=== PATIENT | female | born 2000 | race Caucasian/White ===

== ENCOUNTER 2023-11-09 22:07 | Outpatient (REF) | payer OTHER, SELFPAY ==
[2023-11-12 22:07] LABS: Age Gdln ACOG Testing Note (.); IGP, rfx Aptima HPV ASCU Note (.)
== END 2023-11-09 22:08 | disposition home or self-care (01) ==
LOC: LAB 22:07
PROVIDERS: Visit Provider Physician Assistant
DX: Z01.419 Encounter for gynecological examination (general) (routine) without abnormal findings (principal)
CPT/HCPCS: G0145

== ENCOUNTER 2023-11-10 15:08 | Outpatient (OUT) | payer OTHER, SELFPAY ==
--- NOTE | 2023-11-10 15:12 | US_ITS ---
The [address] [address] Patient Name: MARY JO MEEKS MRN: [id number] date: 2000 Sex: F Assigned Patient Location: [facility] Current Patient Location: [facility] Accession/Order Number: [id number] Exam Date: 11/10/2023 15:12 Report Date: 11/10/2023 15:54 At the request of: SANDOR DEL VALLE Procedure: US pelvis transvaginal EXAMINATION: US pelvis transvaginal HISTORY: PELVIC PAIN WITH INTERCOURSE COMPARISON: No relevant comparison available. FINDINGS: The uterus is normal in size, contour and echotexture, anteverted, retroflexed. The uterus measures 8.5 x 3.9 x 6.2 cm. No focal myometrial mass The endometrium measures 9 mm, normal. The right ovary is normal measuring 4.4 x 2.2 x 3.6 cm. Area of anechoic echogenicity measuring 2.7 cm, simple cyst. Multiple peripheral subcentimeter follicles Normal color Doppler flow. Left ovary is normal measuring 3.5 x 2.1 x 2.9 cm. Additional subcentimeter follicles Normal color Doppler flow. Small amount of free pelvic fluid, likely physiologic US/US pelvis transvaginal IMPRESSION: 2.7 cm right ovarian simple cyst Electronically authenticated by: DAVID KIM Date: 11/10/2023 15:54
== END 2023-11-10 15:09 | disposition home or self-care (01) ==
LOC: NOMS 15:09
PROVIDERS: Visit Provider Obstetrics & Gynecology
DX: R10.2 Pelvic and perineal pain (principal); N83.291 Other ovarian cyst, right side
CPT/HCPCS: 76830

== ENCOUNTER 2024-01-05 11:40 | Emergency (ER) | payer OTHER, SELFPAY ==
[2024-01-05 11:53] VITALS: BP 104/87; PULSE 90; TEMP 36.8; O2SAT 99; BMI 29.1
--- NOTE | 2024-01-05 12:10 | ECG_ITS ---
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
--- NOTE | 2024-01-05 12:10 | XR_ITS ---
The [address] [address] Patient Name: MARY JO MEEKS MRN: [id number] date: 2000 Sex: F Assigned Patient Location: ER Current Patient Location: ER Accession/Order Number: [id number] Exam Date: 01/05/2024 12:30 Report Date: 01/05/2024 13:04 At the request of: ROLDAN BUENROSTRO Procedure: XR chest 1V EXAMINATION: XR chest 1V HISTORY: Chest pain COMPARISON: No relevant comparison available. FINDINGS: LUNGS: No infiltrate, pneumothorax, or pleural effusion. MEDIASTINUM: No abnormal widening. BOWEL GAS PATTERN: Non-obstructed. FREE AIR: None. CALCIFICATIONS: None significant. BONES: No fracture or visible bone lesion. OTHER: Negative. XR/XR chest 1V IMPRESSION: 1. No acute cardiopulmonary process. Electronically authenticated by: CATHY HOUSER Date: 01/05/2024 13:04
--- NOTE | 2024-01-05 12:11 | ED.CHESTPAI1 ---
HPI - Chest Pain General Chief Complaint: Chest Pain Stated Complaint: CHEST PAIN Time Seen by Provider: 01/05/24 12:07 History of Present Illness HPI narrative: 23-year-old female presents for chest pain. It is in the left side of her chest and it started at 430 this morning and it has been continuous. No injury. It feels like a squeezing. She does not have back pain or shortness of breath or fever or cough. There was no injury and she is never had symptoms like this before. Related Data Home Medications ?Medication ?Instructions ?Recorded ?Confirmed norethindrone (contraceptive) 0.35 0.35 mg DAILY 01/05/24 mg tablet Allergies Allergy/AdvReac Type Severity Reaction Status Date / Time No Known Drug Allergies Allergy Verified 01/05/24 11:53 Review of Systems ROS Narrative A ten point review of systems is negative except as noted above. Exam Narrative Exam Narrative: Nurses note and vital signs reviewed and patient is not hypoxic. General: The patient appears well and in no apparent distress. Patient is resting comfortably on cart. Skin: Warm, dry, no pallor noted. There is no rash noted. Head: Normocephalic, atraumatic Eye: Normal conjunctiva, no drainage Ears, Nose, Mouth, and Throat: oral mucosa is moist. Nares patent. Cardiovascular: Regular Rate and Rhythm, chest wall not tender Respiratory: Patient is in no distress, no accessory muscle use, lungs are clear to auscultation, no wheezing, rales or rhonchi Back: non-tender GI: Soft and nontender Musculoskeletal: The patient has no evidence of calf tenderness, no pitting edema, symmetrical pulses noted bilaterally Neurological: A&O, normal speech Psychiatric: Cooperative Constitutional Vital Signs, click to edit/add: Last Vital Signs Temp 98.3 F 01/05/24 11:53 Pulse 90 01/05/24 11:53 Resp 20 01/05/24 11:53 BP 104/87 01/05/24 11:53 Pulse Ox 99 01/05/24 11:53 O2 Del Method Room Air 01/05/24 11:53 Course Vital Signs Vital signs: Vital Signs Temperature 98.3 F 01/05/24 11:53 Pulse Rate 90 01/05/24 11:53 Respiratory Rate 20 01/05/24 11:53 Blood Pressure 104/87 01/05/24 11:53 Pulse Oximetry 99 01/05/24 11:53 Oxygen Delivery Method Room Air 01/05/24 11:53 Temperature 98.3 F 01/05/24 11:53 Pulse Rate 90 01/05/24 11:53 Respiratory Rate 20 01/05/24 11:53 Blood Pressure 104/87 01/05/24 11:53 Pulse Oximetry 99 01/05/24 11:53 Oxygen Delivery Method Room Air 01/05/24 11:53 MDM - Chest Pain MDM Narrative Medical decision making narrative: Her workup including troponin is negative. She states she has been under a lot of stress recently. At this point I do not suspect cardiac etiology and I have no clinical suspicion of pulmonary embolism. Treatment diagnosis and follow-up were discussed with the patient. Differential Diagnosis Differential diagnosis: Likely pneumothorax, stable angina, atypical chest pain, st elevation myocardial infarction, costochondritis and chest pain Lab Data Attestation: I reviewed the patient's lab results. Labs: Lab Results 01/05/24 Range/Units 12:19 WBC 10.3 (4.0-11.0) 10^3/uL RBC 4.87 (4.20-5.40) 10^6/uL Hgb 15.1 (12.0-16.0) g/dL Hct 44.4 (36.0-48.0) % MCV 91.2 (81.0-99.0) fL MCH 31.0 (26.7-34.0) pg MCHC 34.0 (29.9-35.2) g/dL RDW 11.9 (11.0-15.0) % Plt Count 281 (150-450) 10^3/uL MPV 9.3 L (9.5-13.5) fL Neut % (Auto) 65.1 (43.0-75.0) % Lymph % (Auto) 25.9 (20.5-60.0) % [place] % (Auto) 6.4 (1.7-12.0) % Eos % (Auto) 2.0 (0.9-7.0) % Baso % (Auto) 0.3 (0.2-2.0) % Neut # (Auto) 6.7 H (1.4-6.5) 10^3/uL Lymph # (Auto) 2.7 (1.2-3.8) 10^3/uL [place] # (Auto) 0.7 (0.3-0.8) 10^3/uL Eos # (Auto) 0.2 (0.0-0.7) 10^3/uL Baso # (Auto) 0.0 (0.0-0.1) 10^3/uL Abs Immat Gran (auto) 0.03 (0.00-0.03) 10^3/uL Imm/Tot Granulo (auto) 0.3 (0.0-0.5) % Sodium 139 (136-145) mmol/L Potassium 4.1 (3.5-5.1) mmol/L Chloride 103 (98-107) mmol/L Carbon Dioxide 28.7 (21.0-32.0) mmol/L Anion Gap 11.4 BUN 9.0 (7.0-18.0) mg/dL Creatinine 0.64 (0.55-1.02) mg/dL Est GFR ( Amer) >60 (>=60) Est GFR (Non-Af Amer) >60 (>=60) BUN/Creatinine Ratio 14.1 Glucose 92 (74-106) mg/dL Calcium 9.2 (8.5-10.1) mg/dL Troponin I High Sens <4.0 L (4.0-51.3) pg/mL Imaging Data Chest x-ray: Radiologist's impression: ITS Impressions Chest X-Ray 01/05/24 12:10 IMPRESSION: 1. No acute cardiopulmonary process. Electronically authenticated by: CATHY HOUSER Date: 01/05/2024 13:04 ECG Data Attestation: I personally reviewed and interpreted this ECG as follows: (EKG on my interpretation shows normal sinus rhythm without acute change.) Heart Score History: Slightly/Non-Suspicious ECG: Normal Age: <45 years Risk Factors: No Risk Factors Troponin: <Normal Limit Total Heart Score Recommendations & Risks:: 0 Discharge Plan Discharge Stand Alone Forms: Portal Instructions Chief Complaint: Chest Pain Clinical Impression: Chest pain Patient Disposition: Home, Self-Care Time of Disposition Decision: 13:14 Condition: Good Mode of Transportation: Private Vehicle Prescriptions / Home Meds: No Action norethindrone (contraceptive) 0.35 mg tablet 0.35 mg DAILY Print Language: Kyrgyz Instructions: Chest Pain (ED) Referrals: Physician,Non-Staff, MD [Primary Care Provider] - 1 week
[2024-01-05] MEDS: lidocaine HCL 15 ML, MAG HYDROX/ALUMINUM HYD/SIMETH 30 ML, HYOSCYAMINE SULFATE 0.25 MG PO (12:22)
[2024-01-05 12:26] LABS: Basophils Percent Auto 0.3 % (0.2-2.0); Eosinophils Absolute Auto 0.2 10^3/uL (0.0-0.7); Hematocrit 44.4 % (36.0-48.0); Hemoglobin 15.1 g/dL (12.0-16.0); Immature Granulocytes Abs Auto 0.03 10^3/uL (0.00-0.03); Immature Granulocytes Pct Auto 0.3 % (0.0-0.5); Lymphocytes Absolute Auto 2.7 10^3/uL (1.2-3.8); Lymphocytes Percent Auto 25.9 % (20.5-60.0); Mean Corpuscular Volume 91.2 fL (81.0-99.0); Mean Platelet Volume 9.3 fL (9.5-13.5); Monocytes Absolute Auto 0.7 10^3/uL (0.3-0.8); Monocytes Percent Auto 6.4 % (1.7-12.0); Neutrophils Absolute Auto 6.7 10^3/uL (1.4-6.5); Neutrophils Percent Auto 65.1 % (43.0-75.0); Platelet Count 281 10^3/uL (150-450); Red Blood Count 4.87 10^6/uL (4.20-5.40); Red Cell Distribution Width 11.9 % (11.0-15.0); White Blood Count 10.3 10^3/uL (4.0-11.0)
[2024-01-05 12:51] LABS: Anion Gap 11.4; BUN Creatinine Ratio 14.1; Calcium 9.2 mg/dL (8.5-10.1); Carbon Dioxide 28.7 mmol/L (21.0-32.0); Chloride 103 mmol/L (98-107); Estimated GFR (African America >60 (>=60); Estimated GFR (Non-African Ame >60 (>=60); Glucose 92 mg/dL (74-106); Potassium 4.1 mmol/L (3.5-5.1); Sodium 139 mmol/L (136-145); Troponin I High Sensitivity <4.0 pg/mL (4.0-51.3)
== END 2024-01-05 13:25 | disposition home or self-care (01) ==
PROVIDERS: Emergency Provider Emergency Medicine
DX: R07.9 Chest pain, unspecified (principal); Z79.3 Long term (current) use of hormonal contraceptives
CPT/HCPCS: 36415; 71045; 80048; 84484; 85025; 93005; 99285

== ENCOUNTER 2025-05-08 12:27 | Outpatient (REF) | payer OTHER, SELFPAY ==
--- OUTSIDE RECORDS SUMMARY | 2025-05-08 12:40 | XMS_ITS | CCD ---
Author Organization [facility] Care Team Providers Care Rockboard Lather Name Role Phone NANCY, MARIAN RADHA Unavailable Unavailable NANCY, MARIAN RADHA Unavailable Unavailable NANCY, MARIAN RADHA Unavailable Unavailable YOMAIRA MENDOZA Referring Unavailabl e KAKARALA, KERN C Primary Care Unavailable TIMOTEO, SHIRLEY E Referring Unavailable KAKARALA, KERN C Primary Care Unavailable VIKY ., DR PATTEN Admitting Unavailable FLOR MISHRA Primary Care Unavailable VIKY ., DR PATTEN Consulting Unavailable VIKY ., DR PATTEN Attending Unavailable VIKY ., DR PATTEN Admitting Unavailable REQUEST, DR NONE LISTED Primary Care Unavaila ble VIKY ., DR PATTEN Consulting Unavailable VIKY ., DR PATTEN Attending Unavailable Jose Gamino Consulting Unavailable VIKY ., DR PATTEN Admitting Unavailable VIKY ., DR PATTEN Consulting Unavailable REQUEST, DR NONE LISTED Primary Care Unavaila ble VIKY ., DR PATTEN Attending Unavailable VIKY ., DR PATTEN Consulting Unavailable VIKY ., DR PATTNE Attending Unavailable VIKY ., DR PATTEN Admitting Unavailable REQUEST, DR NONE LISTED Primary Care Unavaila ble VIKY ., DR PATTEN Procedure Practitioner Unavail able VIKY ., DR PATTEN Admitting Unavailable VIKY ., DR PATTEN Consulting Unavailable REQUEST, DR NONE LISTED Primary Care Unavaila ble VIKY ., DR PATTEN Attending Unavailable TONNY NEUMANN Consulting Unavailable TONNY NEUMANN Attending Unavailable TONNY NEUMANN Admitting Unavailable MISC, DR RIOS Primary Care Unavailable VIKY ., DR PATTEN Admitting Unavailable VIKY ., DR PATTEN Consulting Unavailable MISC, DR RIOS Primary Care Unavailable VIKY ., DR PATTEN Attending Unavailable VIKY ., DR PATTEN Admitting Unavailable VIKY ., DR PATTEN Consulting Unavailable VIKY ., DR PATTEN Attending Unavailable FLOR MISHRA Primary Care Unavailable Jose Gamino Consulting Unavailable VIKY ., DR PATTEN Admitting Unavailable FLOR MISHRA Primary Care Unavailable DR SANDOR CAMACHO Attending Unavailable VIKY ., DR PATTEN Consulting Unavailable SANDOR SALMON Attending Unavailable Unavailable Primary Care Provider Unavailabl e Medications Completed/Discontinued Medications Medication Drug Class(es) Dates Sig (Normalized) Sig (Original) levonorgestrel 0.738997 mg/hr intrauterine system (1 source) Progestin, Progestin-containi ng Intrauterine Device Start: 11-17-2023 End: 02-14-2025 Levonorgestrel intrauterine device Problems Active Problems Problem Classification Problem Date Documented Date Episodic/Chronic Contraceptive and procreative management (1 source) Patient encounter status; Translations: [Encounter for removal of intrauterine contraceptive device] 02-14-2025 Episodic Menstrual disorders (4 sources) Irregular menstruation, unspecified; Translations: [IRREGULAR MENSTRUATION UNSPECIFIED] Onset: 04-25-2022 Chronic OB-related trauma to perineum and vulva (1 source) First degree perineal laceration during delivery; Translations: [FIRST DEG PERINEAL LAC DUR DELIV] Onset: 11-07-2022 Episodic Other complications of ; puerperium affecting management of mother (2 sources) Maternal care for other (suspected) abnormality and damage, not applicable or unspecified; Translations: [MAT CARE OTH ABN DAMGE NA/UNS] Onset: 11-03-2022 Episodic Other and delivery including normal (10 sources) Single live ; Translations: [ state, incidental] Onset: 04-12-2022 Episodic Other screening for suspected conditions (not mental disorders or infectious disease) (14 sources) Encounter for screening for diabetes mellitus; Translations: [Encounter for screening for malignant neoplasm of cervix] Onset: 04-27-2022 Episodic Residual codes; unclassified (1 source) 39 weeks gestation of ; Translations: [39 WEEKS GESTATION OF ] Onset: 11-07-2022 Episodic Past or Other Problems Problem Classification Problem Date Documented Date Episodic/Chronic Diabetes mellitus without complication (4 sources) Other abnormal glucose; Translations: [OTHER ABNORMAL GLUCOSE] Onset: 09-12-2022 Episodic Immunizations and screening for infectious disease (3 sources) Encounter for screening for human papillomavirus (HPV); Translations: [Encounter for screening for infections with a predominantly sexual mode of transmission] Onset: 04-27-2022 Episodic Other female genital disorders (1 source) Other specified noninflammatory disorders of vagina; Translations: [OTH SPEC NONINFLAMMATORY D/O VAGINA] Onset: 08-24-2022 Episodic Results Test Name Value Interpretation Reference Range Facility IUD Removalon 02-14-2025 Tess FernandezROB 02/16/2025 9:03 AM IUD Removal Date/Time: 02/14/2025 10:26 AM Performed by: Sandor Salmon DO Authorized by: Sandor Salmon DO Consent: Consent obtained: Written Consent given by: Patient Procedure risks and benefits discussed: yes Patient questions answered: yes Patient agrees, verbalizes understanding, and wants to proceed: yes Educational handouts given: yes Instructions and paperwork completed: yes [place] protocol: Patient states understanding of procedure being performed: yes Relevant documents present and verified: yes Test results available and properly labeled: yes Imaging studies available: yes Required blood products, implants, devices, and special equipment available: yes Site marked: yes Procedure: Removed with no complications: yes Removal due to mechanical complications of IUD: no Removal due to infection and inflammatory reaction: no Comments: IUD Removal: Patient presents today for removal of IUD. Written consent was obtained and patient was placed in dorsal lithotomy position with feet in stirrups. A sterile speculum was inserted into the vagina and the cervix was visualized. The IUD strings were grasped gently with forceps and the IUD was removed in its entirety without difficulty. The IUD was shown to the patient then properly discarded. Follow Up: Patient is to return to the office for annual exam unless needed otherwise Pending sale to [facility] CBC AUTO DIFFon 11-04-2022 BASO # 0.0 103/ul Normal 0.0-0.1 [facility] Comment on above: Performed By: #### C BC #### [facility] [address] [place] [address] Dr. Ruchi Glover Basophils/100 WBC (Bld) 0.2 % Normal 0.2-2.0 [facility] Comment on above: Performed By: #### C BC #### [facility] [address] [place] [address] Dr. Ruchi Glover EO # 0.0 103/ul Normal 0.0-0.7 [facility] Comment on above: Performed By: #### C BC #### [facility] [address] [place] [address] Dr. Ruchi Glover Eosinophils/100 WBC (Bld) 0.2 % Critically low 0.9-7.0 [facility] Comment on above: Performed By: #### C BC #### [facility] [address] [place] [address] Dr. Ruchi Glover Erythrocyte distribution width (RBC) [Ratio] 13.1 % Normal 11.0-15.0 [facility] Comment on above: Performed By: #### C BC #### [facility] [address] [place] [address] Dr. Ruchi Glover Hematocrit (Bld) [Volume fraction] 29.7 % Critically low 36.0-48.0 [facility] Comment on above: Performed By: #### C BC #### [facility] [address] [place] [address] Dr. Ruchi Glover Hemoglobin (Bld) [Mass/Vol] 9.9 g/dL Critically low 12.0-16.0 [facility] Comment on above: Performed By: #### C BC #### [facility] [address] [place] [address] Dr. Ruchi Glover IG # 0.12 10e3/ul Critically high 0.00-0.03 [facility] Comment on above: Performed By: #### C BC #### [facility] [address] [place] [address] Dr. Ruchi Glover IG % 0.7 % Critically high 0.0-0.5 [facility] Comment on above: Performed By: #### C BC #### [facility] [address] [place] [address] Dr. Ruchi Glover LYMPH # 2.5 103/ul Normal 1.2-3.8 [facility] Comment on above: Performed By: #### C BC #### [facility] [address] [place] [address] Dr. Ruchi Glover Lymphocytes/100 WBC (Bld) 14.9 % Critically low 20.5-60.0 [facility] Comment on above: Performed By: #### C BC #### [facility] [address] [place] [address] Dr. Ruchi Glover MANUAL DIFF REQ NO Normal [facility] Comment on above: Performed By: #### C BC #### [facility] [address] [place] [address] Dr. Ruchi Glover MCH (RBC) [Entitic mass] 30.1 pg Normal 26.7-34.0 [facility] Comment on above: Performed By: #### C BC #### [facility] [address] [place] [address] Dr. Ruchi Glover MCHC (RBC) [Mass/Vol] 33.3 g/dL Normal 29.9-35.2 [facility] Comment on above: Performed By: #### C BC #### [facility] [address] [place] [address] Dr. Ruchi Glover MCV (RBC) [Entitic vol] 90.3 fL Normal 81.0-99.0 [facility] Comment on above: Performed By: #### C BC #### [facility] [address] [place] [address] Dr. Ruchi Glover MONO # 1.4 103/ul Critically high 0.3-0.8 [facility] Comment on above: Performed By: #### C BC #### [facility] [address] [place] [address] Dr. Ruchi Glover Monocytes/100 WBC (Bld) 8.5 % Normal 1.7-12.0 [facility] Comment on above: Performed By: #### C BC #### [facility] [address] [place] [address] Dr. Ruchi Glover NEUT # 12.4 103/ul Critically high 1.4-6.5 [facility] Comment on above: Performed By: #### C BC #### [facility] [address] [place] [address] Dr. Ruchi Glover Neutrophils/100 WBC (Bld) 75.5 % Critically high 43.0-75.0 [facility] Comment on above: Performed By: #### C BC #### [facility] [address] [place] [address] Dr. Ruchi Glover Platelet mean volume (Bld) [Entitic vol] 9.6 fL Normal 9.5-13.5 [facility] Comment on above: Performed By: #### C BC #### [facility] [address] [place] [address] Dr. Ruchi Glover PLT 228 103/ul Normal 150-450 [facility] Comment on above: Performed By: #### C BC #### [facility] [address] [place] [address] Dr. Ruchi Glover RBC 3.29 106/ul Critically low 4.20-5.40 [facility] Comment on above: Performed By: #### C BC #### [facility] [address] [place] [address] Dr. Ruchi Glover WBC 16.5 103/ul Critically high 4.0-11.0 [facility] Comment on above: Performed By: #### C BC #### [facility] [address] [place] [address] Dr. Ruchi Glover CBC AUTO DIFFon 11-03-2022 BASO # 0.1 103/ul Normal 0.0-0.1 [facility] Comment on above: Performed By: #### G LU1HR #### [facility] [address] [place] [address] Dr. Ruchi Glover Basophils/100 WBC (Bld) 0.3 % Normal 0.2-2.0 [facility] Comment on above: Performed By: #### G LU1HR #### [facility] [address] [place] [address] Dr. Ruchi Glover EO # 0.1 103/ul Normal 0.0-0.7 [facility] Comment on above: Performed By: #### G LU1HR #### [facility] [address] [place] [address] Dr. Ruchi Glover Eosinophils/100 WBC (Bld) 0.9 % Normal 0.9-7.0 [facility] Comment on above: Performed By: #### G LU1HR #### [facility] [address] [place] [address] Dr. Ruchi Glover Erythrocyte distribution width (RBC) [Ratio] 13.1 % Normal 11.0-15.0 [facility] Comment on above: Performed By: #### G LU1HR #### [facility] [address] [place] [address] Dr. Ruchi Glover Hematocrit (Bld) [Volume fraction] 37.4 % Normal 36.0-48.0 [facility] Comment on above: Performed By: #### G LU1HR #### [facility] [address] [place] [address] Dr. Ruchi Glover Hemoglobin (Bld) [Mass/Vol] 12.4 g/dL Normal 12.0-16.0 [facility] Comment on above: Performed By: #### G LU1HR #### [facility] [address] [place] [address] Dr. Ruchi Glover IG # 0.09 10e3/ul Critically high 0.00-0.03 [facility] Comment on above: Performed By: #### G LU1HR #### [facility] [address] [place] [address] Dr. Ruchi Glover IG % 0.6 % Critically high 0.0-0.5 [facility] Comment on above: Performed By: #### G LU1HR #### [facility] [address] [place] [address] Dr. Ruchi Glover LYMPH # 3.5 103/ul Normal 1.2-3.8 [facility] Comment on above: Performed By: #### G LU1HR #### [facility] [address] [place] [address] Dr. Ruchi Glover Lymphocytes/100 WBC (Bld) 23.6 % Normal 20.5-60.0 [facility] Comment on above: Performed By: #### G LU1HR #### [facility] [address] [place] [address] Dr. Ruchi Glover MANUAL DIFF REQ NO Normal [facility] Comment on above: Performed By: #### G LU1HR #### [facility] [address] [place] [address] Dr. Ruchi Glover MCH (RBC) [Entitic mass] 29.7 pg Normal 26.7-34.0 [facility] Comment on above: Performed By: #### G LU1HR #### [facility] [address] [place] [address] Dr. Ruchi Glover MCHC (RBC) [Mass/Vol] 33.2 g/dL Normal 29.9-35.2 [facility] Comment on above: Performed By: #### G LU1HR #### [facility] [address] [place] [address] Dr. Ruchi Glover MCV (RBC) [Entitic vol] 89.7 fL Normal 81.0-99.0 [facility] Comment on above: Performed By: #### G LU1HR #### [facility] [address] [place] [address] Dr. Ruchi Glover MONO # 1.3 103/ul Critically high 0.3-0.8 [facility] Comment on above: Performed By: #### G LU1HR #### [facility] [address] [place] [address] Dr. Ruchi Glover Monocytes/100 WBC (Bld) 8.5 % Normal 1.7-12.0 [facility] Comment on above: Performed By: #### G LU1HR #### [facility] [address] [place] [address] Dr. Ruchi Glover NEUT # 9.8 103/ul Critically high 1.4-6.5 [facility] Comment on above: Performed By: #### G LU1HR #### [facility] [address] [place] [address] Dr. Ruchi Glover Neutrophils/100 WBC (Bld) 66.1 % Normal 43.0-75.0 [facility] Comment on above: Performed By: #### G LU1HR #### [facility] [address] [place] [address] Dr. Ruchi Glover Platelet mean volume (Bld) [Entitic vol] 9.7 fL Normal 9.5-13.5 [facility] Comment on above: Performed By: #### G LU1HR #### [facility] [address] [place] [address] Dr. Ruchi Glover PLT 343 103/ul Normal 150-450 [facility] Comment on above: Performed By: #### G LU1HR #### [facility] [address] [place] [address] Dr. Ruchi Glover RBC 4.17 106/ul Critically low 4.20-5.40 [facility] Comment on above: Performed By: #### G LU1HR #### [facility] [address] [place] [address] Dr. Ruchi Glover WBC 14.9 103/ul Critically high 4.0-11.0 [facility] Comment on above: Performed By: #### G LU1HR #### [facility] [address] [place] [address] Dr. Ruchi Glover DRUG SCREEN RAPID (URINE)on 11-03-2022 AMP Negative Normal NEGATIVE [facility] Comment on above: Performed By: #### D RUGRPD #### [facility] [address] [place] [address] Dr. Ruchi Glover BAR Negative Normal NEGATIVE [facility] Comment on above: Performed By: #### D RUGRPD #### [facility] [address] [place] [address] Dr. Ruchi Glover BUP Negative Normal NEGATIVE [facility] Comment on above: Performed By: #### D RUGRPD #### [facility] [address] [place] [address] Dr. Ruchi Glover BZO Negative Normal NEGATIVE [facility] Comment on above: Performed By: #### D RUGRPD #### [facility] [address] [place] [address] Dr. Ruchi Glover ANKITA Negative Normal NEGATIVE [facility] Comment on above: Performed By: #### D RUGRPD #### [facility] [address] [place] [address] Dr. Ruchi Glover CUT-OFFS SEE BELOW Normal [facility] Comment on above: Result Comment: AMP (Amphetamine): 500ng/mL, BAR (Barbituates): 200 ng/mL, BZO (Benzodiazepines): 150 ng/mL, BUP (Buprenorphine): 10 ng/mL, ANKITA (Cocaine): 150 ng/mL, mAMP (Methamphetamine): 500 ng/mL, MTD (Methadone): 200 ng/mL, OPI (Opiates): 100 ng/mL, OXY (Oxycodone): 100 ng/mL, PCP (Phencyclidine): 25 ng/mL, PPX (Propoxyphene): 300 ng/mL, THC (Cannabinoids): 50 ng/mL, TCA (Trycyclic Antidepressants): 300 ng/mL Performed By: #### D RUGRPD #### [facility] [address] [place] [address] Dr. Ruchi Glover DRUG CUT HEADER DRUG CLASS TEST SYSTEM CUT-OFF CONCENTRATIONS ARE FOLLOWS: Normal [facility] Comment on above: Performed By: #### D RUGRPD #### [facility] [address] [place] [address] Dr. Ruchi Glover mAMP Negative Normal NEGATIVE [facility] Comment on above: Performed By: #### D RUGRPD #### [facility] [address] [place] [address] Dr. Ruchi Glover MTD Negative Normal NEGATIVE [facility] Comment on above: Performed By: #### D RUGRPD #### [facility] [address] [place] [address] Dr. Ruchi Glover OPI Negative Normal NEGATIVE [facility] Comment on above: Performed By: #### D RUGRPD #### [facility] [address] [place] [address] Dr. Ruchi Glover OXY Negative Normal NEGATIVE [facility] Comment on above: Performed By: #### D RUGRPD #### [facility] [address] [place] [address] Dr. Ruchi Glover PCP Negative Normal NEGATIVE [facility] Comment on above: Performed By: #### D RUGRPD #### [facility] [address] [address] [address] Ruchi Glover PPX Negative Normal NEGATIVE [facility] Comment on above: Performed By: #### D RUGRPD #### [facility] [address] [place] [address] Dr. Ruchi Glover TCA Negative Normal NEGATIVE [facility] Comment on above: Performed By: #### D RUGRPD #### [facility] [address] [place] [address] Dr. Ruchi Glover THC Negative Normal NEGATIVE [facility] Comment on above: Performed By: #### D RUGRPD #### [facility] [address] [place] [address] Dr. Ruchi Glover TYPE AND SCREENon 11-03-2022 TYPE AND SCREEN Negative Normal [facility] Comment on above: Performed By: #### G LU1HR #### [facility] [address] [place] [address] Dr. Ruchi Glover GROUP B STREP CULTUREon S. agalactiae Ag Ql (Unsp spec) Culture Observations: NEGATIVE FOR GROUP B STREPTOCOCCUS. Normal [facility] Comment on above: Performed By: #### G BSCX #### [facility] [address] [place] [address] Dr. Ruchi Glover GTT 3 HR PREGon 09-12-2022 Glucose [Mass/Vol] 87 mg/dL Normal 74-106 [facility] Comment on above: Performed By: #### G TT3P #### [facility] [address] [place] [address] Dr. Ruchi Glover Glucose [Mass/Vol] 152 mg/dL Normal [facility] Comment on above: Performed By: #### G TT3P #### [facility] [address] [place] [address] Dr. Ruchi Glover Glucose [Mass/Vol] 135 mg/dL Normal [facility] Comment on above: Performed By: #### G TT3P #### [facility] [address] [place] [address] Dr. Ruchi Glover PAP ACOG PANEL 2: 21 to 29on 08-25-2022 . . Normal [facility] Comment on above: Performed By: #### G LU1HR #### [facility] [address] [place] [address] Dr. Ruchi Glover DIAGNOSIS: Comment [facility] Comment on above: Result Comment: NEGA TIVE FOR INTRAEPITHELIAL LESION OR MALIGNANCY. Performed By: #### G LU1HR #### [facility] [address] [place] [address] Dr. Ruchi Glover Methodology: Comment [facility] Comment on above: Result Comment: This liquid based ThinPrep(R) pap test was screened with the use of an image guided system. Performed By: #### G LU1HR #### [facility] [address] [place] [address] Dr. Ruchi Glover Note: Comment [facility] Comment on above: Result Comment: The Pap smear is a screening test designed to aid in the detection of premalignant and malignant conditions of the uterine cervix. It is not a diagnostic procedure and should not be used as the sole means of detecting cervical cancer. Both false-positive and false-negative reports do occur. . Performed By: #### G LU1HR #### [facility] [address] [place] [address] Dr. Ruchi Glover Performed by: Comment Normal [facility] Comment on above: Result Comment: Raeann Mak, It Support Specialist (ASCP) Performed By: #### G LU1HR #### [facility] [address] [place] [address] Dr. Ruchi Glover Reflex Criteria: Comment [facility] Comment on above: Result Comment: The HPV DNA reflex criteria were not met with this specimen result therefore, no HPV testing was performed. . Performed By: #### G LU1HR #### [facility] [address] [place] [address] Dr. Ruchi Glover Specimen adequacy: Comment [facility] Comment on above: Result Comment: Sati sfactory for evaluation. No endocervical component is identified. Performed By: #### G LU1HR #### [facility] [address] [place] [address] Dr. Ruchi Glover Age Gdln ACOG Testing 21-29 Normal [facility] Comment on above: Performed By: #### G LU1HR #### [facility] [address] [place] [address] Dr. Ruchi Glover CHLAMYDIA/GONOCOCCUS TESSA (SW AB/URINE/PAPon 08-23-2022 Chlamydia trachomatis, ETSSA Negative Normal Negative [facility] Comment on above: Performed By: #### C T/NGNA #### [facility] [address] [place] [address] Dr. Ruchi Glover Neisseria gonorrhoeae, TESSA Negative Normal Negative [facility] Comment on above: Performed By: #### C T/NGNA #### [facility] [address] [place] [address] Dr. Ruchi Glover VAGINITIS/VAGINOSIS DNA PROB [place] 08-22-2022 Lesli species Negative Normal Negative [facility] Comment on above: Performed By: #### V AGINT #### [facility] [address] [place] [address] Dr. Ruchi Glover Gardnerella vaginalis Negative Normal Negative [facility] Comment on above: Performed By: #### V AGINT #### [facility] [address] [place] [address] Dr. Ruchi Glover Trichomonas vaginalis Negative Normal Negative [facility] Comment on above: Performed By: #### V AGINT #### [facility] [address] [place] [address] Dr. Ruchi Glover CBC AUTO DIFFon 08-21-2022 BASO # 0.0 103/ul Normal 0.0-0.1 [facility] Comment on above: Performed By: #### C BC #### [facility] [address] [place] [address] Dr. Ruchi Glover Basophils/100 WBC (Bld) 0.1 % Critically low 0.2-2.0 [facility] Comment on above: Performed By: #### C BC #### [facility] [address] [place] [address] Dr. Ruchi Glover EO # 0.1 103/ul Normal 0.0-0.7 [facility] Comment on above: Performed By: #### C BC #### [facility] [address] [place] [address] Dr. Ruchi Glover Eosinophils/100 WBC (Bld) 0.7 % Critically low 0.9-7.0 [facility] Comment on above: Performed By: #### C BC #### [facility] [address] [place] [address] Dr. Ruchi Glover Erythrocyte distribution width (RBC) [Ratio] 12.8 % Normal 11.0-15.0 [facility] Comment on above: Performed By: #### C BC #### [facility] [address] [place] [address] Dr. Ruchi Glover Hematocrit (Bld) [Volume fraction] 36.9 % Normal 36.0-48.0 [facility] Comment on above: Performed By: #### C BC #### [facility] [address] [place] [address] Dr. Ruchi Glover Hemoglobin (Bld) [Mass/Vol] 12.7 g/dL Normal 12.0-16.0 [facility] Comment on above: Performed By: #### C BC #### [facility] [address] [place] [address] Dr. Ruchi Glover IG # 0.06 10e3/ul Critically high 0.00-0.03 [facility] Comment on above: Performed By: #### C BC #### [facility] [address] [place] [address] Dr. Ruchi Glover IG % 0.4 % Normal 0.0-0.5 [facility] Comment on above: Performed By: #### C BC #### [facility] [address] [place] [address] Dr. Ruchi Glover LYMPH # 1.9 103/ul Normal 1.2-3.8 [facility] Comment on above: Performed By: #### C BC #### [facility] [address] [place] [address] Dr. Ruchi Glover Lymphocytes/100 WBC (Bld) 13.9 % Critically low 20.5-60.0 [facility] Comment on above: Performed By: #### C BC #### [facility] [address] [place] [address] Dr. Ruchi Glover MANUAL DIFF REQ NO Normal [facility] Comment on above: Performed By: #### C BC #### [facility] [address] [place] [address] Dr. Ruchi Glover MCH (RBC) [Entitic mass] 31.9 pg Normal 26.7-34.0 [facility] Comment on above: Performed By: #### C BC #### [facility] [address] [place] [address] Dr. Ruchi Glover MCHC (RBC) [Mass/Vol] 34.4 g/dL Normal 29.9-35.2 [facility] Comment on above: Performed By: #### C BC #### [facility] [address] [place] [address] Dr. Ruchi Glover MCV (RBC) [Entitic vol] 92.7 fL Normal 81.0-99.0 [facility] Comment on above: Performed By: #### C BC #### [facility] [address] [place] [address] Dr. Ruchi Glover MONO # 0.7 103/ul Normal 0.3-0.8 [facility] Comment on above: Performed By: #### C BC #### [facility] [address] [place] [address] Dr. Ruchi Glover Monocytes/100 WBC (Bld) 5.1 % Normal 1.7-12.0 [facility] Comment on above: Performed By: #### C BC #### [facility] [address] [place] [address] Dr. Ruchi Glover NEUT # 10.7 103/ul Critically high 1.4-6.5 [facility] Comment on above: Performed By: #### C BC #### [facility] [address] [place] [address] Dr. Ruchi Glover Neutrophils/100 WBC (Bld) 79.8 % Critically high 43.0-75.0 [facility] Comment on above: Performed By: #### C BC #### [facility] [address] [address] [address] Ruchi Glover Platelet mean volume (Bld) [Entitic vol] 9.2 fL Critically low 9.5-13.5 [facility] Comment on above: Performed By: #### C BC #### [facility] [address] [place] [address] Dr. Ruchi Glover PLT 271 103/ul Normal 150-450 [facility] Comment on above: Performed By: #### C BC #### [facility] [address] [place] [address] Dr. Ruchi Glover RBC 3.98 106/ul Critically low 4.20-5.40 [facility] Comment on above: Performed By: #### C BC #### [facility] [address] [address] [address] Ruchi Glover WBC 13.4 103/ul Critically high 4.0-11.0 [facility] Comment on above: Performed By: #### C BC #### [facility] [address] [place] [address] Dr. Ruchi Glover GLUCOSE - 1HRon 08-21-2022 Glucose [Mass/Vol] 149 mg/dL Critically high 74-106 [facility] Comment on above: Performed By: #### G LU1HR #### [facility] [address] [place] [address] Dr. Ruchi Glover US PREG ANATOMY SINGLEon US PREG ANATOMY SINGLE EXAMINATION: US PREG ANATOMY SINGLE HISTORY: anatomy study COMPARISON: No relevant comparison available. TECHNIQUE: Transabdominal sonographic examination was performed for obstetrical and evaluation. FINDINGS: Number: 1 Heart Rate: 153.0 bpm H.B. /min Amniotic Fluid Volume: Subjectively normal Placental Location: ANTERIOR with lower margin 8.2 cm from os. Cervix Length: 4 cm , closed. ANATOMY: Normal Structures -cerebellum, choroid plexus, cisterna magna, lateral cerebral ventricles, orbits, midline falx, hard palate, four-chamber heart, RVOT, LVOT, stomach, kidneys, bladder, umbilical cord insertion into abdomen, three-vessel cord, cervical spine, thoracic spine, lumbar spine, sacral spine, right upper extremity, left upper extremity, right lower extremity, left lower extremity. SUBOPTIMALLY SEEN: None ABNORMALITIES: Dilated renal pelvis bilaterally; 8 mm on right, 11 mm on left. BIOMETRY: BPD: 5.0 cm 21 weeks 0 days HC: 18.1 cm 20 weeks 4 days AC: 15.7 cm 20 weeks 6 days FL: 3.3 cm 20 weeks 2 days EFW:367.7 grams; FL/AC: 21.0 FL/BPD: 66.7 HC/AC: 1.2 GESTATIONAL AGE: Age by EDC: 20 weeks 4 days ISI by EDC: 11/09/2022 Age by current US: 20 weeks 5 days ISI by current US: 11/08/2022 IMPRESSION: 1. Single live intrauterine with growth detailed above. 2. Abnormally dilated renal pelvis bilaterally. Follow-up recommended. Electronically authenticated by: JOSE GAMINO Date: 2022-06-26 16:49 Normal [facility] HEPATITIS C VIRUS AB W/ REFL EX QUANTon 04-29-2022 HCV AB <0.1 Normal 0.0-0.9 [facility] Comment on above: Performed By: #### V AGINT #### [facility] [address] [address] [address] Ruchi Glover Interpretation: Comment Normal [facility] Comment on above: Result Comment: Nega tive Not infected with HCV, unless recent infection is suspected or other evidence exists to indicate HCV infection. Performed By: #### V AGINT #### [facility] [address] [address] [address] Ruchi Glover RUBELLA AB IGGon 04-27-2022 Rubella Antibodies, IgG <0.90 Critically low Immune >0.99 [facility] Comment on above: Result Comment: Non- immune <0.90 Equivocal 0.90 - 0.99 Immune >0.99 Performed By: #### V AGINT #### [facility] [address] [address] [address] Ruchi Glover HEP B SURFACE ANTIGEN SCREEN on 04-26-2022 HBsAg Screen Negative Normal Negative [facility] Comment on above: Performed By: #### V AGINT #### [facility] [address] [place] [address] Dr. Ruchi Glover HIV 1 AND 2 WITH REFLEXon HIV Screen 4th Generation wRfx Non-Reactive Normal Non Reactive [facility] Comment on above: Result Comment: HIV Negative HIV-1/HIV-2 antibodies and HIV-1 p24 antigen were NOT detected. There is no laboratory evidence of HIV infection. Performed By: #### G LU1HR #### [facility] [address] [place] [address] Dr. Ruchi Glover RPR QUANTon 04-26-2022 Rapid Plasma Reagin, Quant Non-Reactive Normal NonRea<1:1 [facility] Comment on above: Result Comment: Plea se Note: This test does not meet current guidelines for screening and diagnosis of syphilis. This test is intended for following treatment response in patients being treated for syphilis infection. To screen for syphilis infection, a reflex cascade that includes both RPR and a treponema-specific assay should be utilized, such as Treponema pallidum (Syphilis) Screening Bell (930465) or Rapid Plasma Reagin (RPR) Test With Reflex to Quantitative RPR and Confirmatory Treponema pallidum Antibodies ([id number]). Performed By: #### G LU1HR #### [facility] [address] [place] [address] Dr. Ruchi Glover CBC AUTO DIFFon 04-25-2022 BASO # 0.0 103/ul Normal 0.0-0.1 [facility] Comment on above: Performed By: #### G LU1HR #### [facility] [address] [place] [address] Dr. Ruchi Glover Basophils/100 WBC (Bld) 0.2 % Normal 0.2-2.0 [facility] Comment on above: Performed By: #### G LU1HR #### [facility] [address] [place] [address] Dr. Ruchi Glover EO # 0.1 103/ul Normal 0.0-0.7 [facility] Comment on above: Performed By: #### G LU1HR #### [facility] [address] [place] [address] Dr. Ruchi Glover Eosinophils/100 WBC (Bld) 0.8 % Critically low 0.9-7.0 [facility] Comment on above: Performed By: #### G LU1HR #### [facility] [address] [place] [address] Dr. Ruchi Glover Erythrocyte distribution width (RBC) [Ratio] 11.8 % Normal 11.0-15.0 [facility] Comment on above: Performed By: #### G LU1HR #### [facility] [address] [place] [address] Dr. Ruchi Glover Hematocrit (Bld) [Volume fraction] 42.9 % Normal 36.0-48.0 [facility] Comment on above: Performed By: #### G LU1HR #### [facility] [address] [place] [address] Dr. Ruchi Glover Hemoglobin (Bld) [Mass/Vol] 15.2 g/dL Normal 12.0-16.0 [facility] Comment on above: Performed By: #### G LU1HR #### [facility] [address] [place] [address] Dr. Ruchi Glover IG # 0.03 10e3/ul Normal 0.00-0.03 [facility] Comment on above: Performed By: #### G LU1HR #### [facility] [address] [place] [address] Dr. Ruchi Glover IG % 0.3 % Normal 0.0-0.5 [facility] Comment on above: Performed By: #### G LU1HR #### [facility] [address] [place] [address] Dr. Ruchi Glover LYMPH # 2.5 103/ul Normal 1.2-3.8 [facility] Comment on above: Performed By: #### G LU1HR #### [facility] [address] [place] [address] Dr. Ruchi Glover Lymphocytes/100 WBC (Bld) 25.8 % Normal 20.5-60.0 [facility] Comment on above: Performed By: #### G LU1HR #### [facility] [address] [place] [address] Dr. Ruchi Glover MANUAL DIFF REQ NO Normal [facility] Comment on above: Performed By: #### G LU1HR #### [facility] [address] [place] [address] Dr. Ruchi Glover MCH (RBC) [Entitic mass] 32.3 pg Normal 26.7-34.0 [facility] Comment on above: Performed By: #### G LU1HR #### [facility] [address] [place] [address] Dr. Ruchi Glover MCHC (RBC) [Mass/Vol] 35.4 g/dL Critically high 29.9-35.2 [facility] Comment on above: Performed By: #### G LU1HR #### [facility] [address] [place] [address] Dr. Ruchi Glover MCV (RBC) [Entitic vol] 91.3 fL Normal 81.0-99.0 [facility] Comment on above: Performed By: #### G LU1HR #### [facility] [address] [place] [address] Dr. Ruchi Glover MONO # 0.6 103/ul Normal 0.3-0.8 [facility] Comment on above: Performed By: #### G LU1HR #### [facility] [address] [place] [address] Dr. Ruchi Glover Monocytes/100 WBC (Bld) 6.2 % Normal 1.7-12.0 [facility] Comment on above: Performed By: #### G LU1HR #### [facility] [address] [place] [address] Dr. Ruchi Glover NEUT # 6.4 103/ul Normal 1.4-6.5 [facility] Comment on above: Performed By: #### G LU1HR #### [facility] [address] [place] [address] Dr. Ruchi Glover Neutrophils/100 WBC (Bld) 66.7 % Normal 43.0-75.0 [facility] Comment on above: Performed By: #### G LU1HR #### [facility] [address] [place] [address] Dr. Ruchi Glover Platelet mean volume (Bld) [Entitic vol] 9.3 fL Critically low 9.5-13.5 [facility] Comment on above: Performed By: #### G LU1HR #### [facility] [address] [place] [address] Dr. Ruchi Glover PLT 279 103/ul Normal 150-450 [facility] Comment on above: Performed By: #### G LU1HR #### [facility] [address] [place] [address] Dr. Ruchi Glover RBC 4.70 106/ul Normal 4.20-5.40 [facility] Comment on above: Performed By: #### G LU1HR #### [facility] [address] [place] [address] Dr. Ruchi Glover WBC 9.6 103/ul Normal 4.0-11.0 [facility] Comment on above: Performed By: #### G LU1HR #### [facility] [address] [place] [address] Dr. Ruchi Glover CULTURE URINEon 04-25-2022 CULTURE URINE Culture Observations : No growth Normal [facility] Comment on above: Performed By: #### G LU1HR #### [facility] [address] [place] [address] Dr. Ruchi Glover GLYCOHEMOGLOBIN A1Con 2021 ADA RECOMMENDATION SEE BELOW Normal [facility] Comment on above: Result Comment: ADA RECOMMENDED LIMIT 4.0 - 6.0 ADA THERAPEUTIC TARGET < 7.0 ACTION SUGGESTED > 7.0 Performed By: #### A 1C #### [facility] [address] [place] [address] Dr. Ruchi Glover Glucose [Mass/Vol] 105 mg/dL Normal [facility] Comment on above: Performed By: #### A 1C #### [facility] [address] [place] [address] Dr. Ruchi Glover HbA1c (Bld) [Mass fraction] 5.3 % Normal 4.5-6.2 [facility] Comment on above: Performed By: #### A 1C #### [facility] [address] [address] [address] Ruchi Glover TAMIKO BOX TEST PT SEND OUTo n 04-25-2022 SENT TO REF LAB 04/25/2022 Normal [facility] Comment on above: Performed By: #### G LU1HR #### [facility] [address] [address] [address] Ruchi Glover TYPE AND SCREENon 04-25-2022 TYPE AND SCREEN Negative Normal [facility] Comment on above: Performed By: #### T NS #### [facility] [address] [place] [address] Dr. Ruchi Glover US PREG TVon 04-11-2022 US PREG TV EXAMINATION: US PREG TV HISTORY: Missed period COMPARISON: No relevant comparison available. FINDINGS: GESTATIONAL SAC: Present and normal appearing. POLE: Present and normal appearing. YOLK SAC: Present. CARDIAC: Present. UTERUS: Normal size and appearance. OVARIES: Right: Corpus lutein cyst. Left: Normal. CERVIX: 4.1 cm in length and closed. CUL-DE-SAC: Normal. OTHER: None. AGE BY LMP: 9 weeks, 5 days ISI BY LMP: 11/09/2022 AGE BY US CRL: 9 weeks, 0 days ISI BY US CRL: 11/14/2022 IMPRESSION: 1. Single live intrauterine . Electronically authenticated by: JOSE GAMINO Date: 2022-04-11 16:31 Normal [facility] Chlamydia/GC DNA, Uron 03-26 Chlamydia Probe, Ur Negative Normal NEG [facility] Comment on above: Result Comment: CHLA MYDIA TRACHOMATIS DNA not detected by nucleic acid amplification. This test is intended for medical purposes only and is not valid for the evaluation of suspected sexual abuse or for other forensic purposes. In certain contexts, culture may be required to meet applicable laws and regulations for diagnosis of C. trachomatis and N. gonorrhoeae infections. Per 2014 CDC recommendations, this test does not include confirmation of positive results by an alternative nucleic acid target. Performed By: #### U CGP #### [address] [place] [address] Pricing Coordinator: Stone Fabian MD Gonorrhea Probe, Ur Negative Normal NEG [facility] Comment on above: Result Comment: NEIS SERIA GONORRHOEAE DNA not detected by nucleic acid amplification. This test is intended for medical purposes only and is not valid for the evaluation of suspected sexual abuse or for other forensic purposes. In certain contexts, culture may be required to meet applicable laws and regulations for diagnosis of C. trachomatis and N. gonorrhoeae infections. Per 2014 CDC recommendations, this test does not include confirmation of positive results by an alternative nucleic acid target. Performed By: #### U CGP #### [address] [address] Pricing Coordinator: Stone Fabian MD Cult,Urineon 03-26-2019 Cult,Urine Specimen Description .CLEAN CATCH URINE Special Requests NOT REPORTED Culture NO SIGNIFICANT GROWTH Report Status FINAL 03/26/2019 [facility] Comment on above: Performed By: #### U RC #### [address] [address] Pricing Coordinator: Stone Fabian MD [facility] [address] [place], [place] [address] [address] Pricing Coordinator: Brad Hogan MD HIV Ag/Abon 03-25-2019 HIV Ag/Ab NONREACTIVE [facility] Comment on above: Result Comment: No l aboratory evidence of HIV infection. If acute HIV infection is suspected, consider testing for HIV-1 RNA. Performed By: #### H IVCMB, AHCV #### [address] [id number] Pricing Coordinator: Stone Fabian MD Hep C Abon 03-25-2019 Hep C Ab NONREACTIVE [facility] Comment on above: Result Comment: The hepatitis C procedure used in our laboratory is a Chemiluminescent test specific for three recombinant HCV antigens. A negative anti-HCV result indicates that the antibodies to hepatitis C virus are not present at this time. Individuals with reactive anti-HCV should be considered infected and infectious until proven otherwise. Confirmation of all equivocal or reactive results is recommended by ordering HCV RNA by PCR. Performed By: #### H IVCMB, AHCV #### [address] [address] Pricing Coordinator: Stone Fabian MD Profileon 9 T.pallidum Ab Screen NONREACTIVE Normal NR [facility] Comment on above: Result Comment: T. pallidum antibodies are not detected. There is no serological evidence of infection with T. pallidum (early primary syphilis cannot be excluded). Retest in 2-4 weeks if syphilis is clinically suspect. Performed By: #### P RENAT #### [address] [address] Pricing Coordinator: Stone Fabian MD Hep B Surf Ag NONREACTIVE Normal [facility] Comment on above: Performed By: #### P RENAT #### [address] [address] Pricing Coordinator: Stone Fabian MD Rubella Ab, IgG 13.9 IU/mL Normal [facility] Comment on above: Result Comment: REFERENCE RANGE: <5.0 NON-REACTIVE (non-immune) 5.0 TO 9.9 EQUIVOCAL >=10.0 REACTIVE (immune) Performed By: #### P RENAT #### [address] [address] Pricing Coordinator: Stone Fabian MD Type + Scrnon 03-24 Type + Scrn Negative Normal [facility] Comment on above: Performed By: #### P RTYS #### [facility] [address] [place] [address] [place] [address] Pricing Coordinator: Brad Hogan MD Toxicology Scree, Urineon Amphetamine(s),Ur Negative Normal NEG [facility] Comment on above: Performed By: #### C PDAU #### [facility] [address] [place] [address] Pricing Coordinator: Brad Hogan MD Barbiturate(s),Ur Negative Normal [facility] Comment on above: Performed By: #### C PDAU #### [facility] [address] [place], [place] [id number] Pricing Coordinator: Brad Hogan MD Benzodiazepine(s) Negative Normal [facility] Comment on above: Performed By: #### C PDAU #### [facility] [address] [place], [place] [id number] Pricing Coordinator: Brad Hogan MD Buprenorphrine, Ur Negative Normal [facility] Comment on above: Performed By: #### C PDAU #### [facility] [address] [place], [place] [id number] Pricing Coordinator: Brad Hogan MD Cannabinoid(s),Ur Negative Normal [facility] Comment on above: Performed By: #### C PDAU #### [facility] [address] [place], [place] [id number] Pricing Coordinator: Brad Hogan MD Cocaine Metabolite Negative [facility] Comment on above: Performed By: #### C PDAU #### [facility] [address] [place], [place] [id number] Pricing Coordinator: Brad Hogan MD Methadone Ql (U) Negative Normal NEG [facility] Comment on above: Performed By: #### C PDAU #### [facility] [address] [place], [place] [address] Pricing Coordinator: Brad Hogan MD Methamphetamine, Ur Negative Normal [facility] Comment on above: Performed By: #### C PDAU #### [facility] [address] [place] [address] Pricing Coordinator: Brad Hogan MD Opiate(s), Ur Negative Normal [facility] Comment on above: Performed By: #### C PDAU #### [facility] [address] [place], [place] [id number] Pricing Coordinator: Brad Hogan MD Oxycodone, Urine Negative Normal NEG [facility] Comment on above: Performed By: #### C PDAU #### [facility] [address] [place], [place] [address] Pricing Coordinator: Brad Hogan MD Phencyclidine, Ur Negative Normal NEG [facility] Comment on above: Performed By: #### C PDAU #### [facility] [address] [place], [place] [id number] Pricing Coordinator: Brad Hogan MD Propoxyphene,Urine Negative Normal NEG [facility] Comment on above: Performed By: #### C PDAU #### [facility] [address] [place], [place] [id number] Pricing Coordinator: Brad Hogan MD Tricyclic antidepressants Screen Ql (U) Negative Normal NEG [facility] Comment on above: Result Comment: Drug screen results are to be used for medical purposes only. All positive results are unconfirmed. Testing for employment or legal uses should be sent to a reference laboratory for confirmation. Performed By: #### C PDAU #### [facility] [address] [place], [place] [id number] Pricing Coordinator: Brad Hogan MD Interpretive Info NOT REPORTED Normal [facility] Comment on above: Performed By: #### C PDAU #### [facility] [address] [place], [place] [id number] Pricing Coordinator: Brad Hogan MD MDMA, Urine NOT REPORTED Normal NEG [facility] Comment on above: Performed By: #### C PDAU #### [facility] [address] [place], [place] [id number] Pricing Coordinator: Brad Hogan MD HCG, Quanton 07-07-2018 HCG, Quant 125 IU/L High <5 [facility] Comment on above: Result Comment: Non-preg premeno <=5 Postmeno <=8 Male <=3 If HCG results do not concur with clinical observations, additional testing to confirm result is recommended. This test is not labeled for use as a tumor marker. Performed By: #### B HCG #### [address] [place], [place] [address]83 Type + Scrnon 07-07 Type + Scrn Negative Normal [facility] Comment on above: Performed By: #### P RTYS #### [address] [place], [place] [id number] Culture, Urine Aon 8 Culture, Urine A Specimen description : Clean catch midstream urine Special requests: None Culture results: >100,000 cfu/mL Escherichia coli --> ABNORMALReport status: Final [id number] -------ORGANISM: >100,000 cfu/mL Escherichia coli --> ABNORMAL - [employer] ANTIBIOTIC INTERPRETATION STATUSAmpicillin 8 Susceptible FPiperacillin/Tazobac nieves <=4 Susceptible FCefazolin <=4 Susceptible F - Cefazolin susceptibility test results may be used to predict susceptibility to cefdinir, cefuroxime axetil, and cephalexin when used for therapy of uncomplicated UTIs due to E. coli, K. pneumonia, and P. mirabilis. Ceftriaxone <=1 Susceptible FGentamicin <=1 Susceptible FTrimethoprim/sulfame thoxazole <=/19 Susceptible FNitrofurantoin <=16 Susceptible FCiprofloxacin <=0.25 Susceptible F - If Ciprofloxacin is susceptible (S), Ciprofloxacin can be considered for treatment of complicated UTIs/pyelonephritis due to multi-resistant Gram-negative organisms in children 1 year of age and older. Cefpodoxime 0.5 Susceptible F Abnormal [facility] Comment on above: Performed By: #### U RCA ####Performed at [facility], [address] [place] [address] Vital Signs Date Time Vital Sign Value Performing Clinician Mora blakely 02-14-2025 09:55-0400 Body mass index (BMI) [Ratio] 33.89 kg/m2 Sandor Viky DO Work Phone: [facility] 02-14-2025 09:55-0400 Body weight 95.25 kg Sandor Viky DO Work Phone: [facility] 02-14-2025 09:55-0400 Diastolic blood pressure 74 mm[Hg] Sandor Viky DO Work Phone: [facility] 02-14-2025 09:55-0400 Systolic blood pressure 116 mm[Hg] Sandor Viky DO Work Phone: [facility] Healthcare Encounters Encounter Date Encounter Type Care Provider Facility Start: 05-08-2025 End: 05-08-2025 [employer] flowsheet Sandor Viky DO Work Phone: [facility] Start: 05-08-2025 End: 05-08-2025 Bamboo flowsheet Sandor Viky DO Work Phone: [facility] Start: 02-14-2025 End: 02-14-2025 ambulatory SANODR VIKY Not Available Start: 02-14-2025 End: 02-14-2025 Patient encounter procedure Sandor Viky DO Work Phone: [facility] Comment on above: Encounter for IUD re moval Start: 11-03-2022 End: 11-04-2022 Evaluation and management of inpatient DR SANDOR SALMON . Facility: Start: 10-15-2022 End: 10-15-[address] SANDOR SALMON . Facility: Start: 09-12-2022 End: 09-13-[address] SANDOR SALMON . Facility:[facility] Start: 08-21-2022 End: 08-22-2022 ambulatory TONNY NEUMANN Facility:[facility] Start: 08-20-2022 End: 08-20-[address] SANDOR SALMON . Facility:[facility] Start: 06-26-2022 End: 06-27-[address] SANDOR SALMON . Facility: Start: 04-25-2022 End: 04-26-[address] SANDOR SALMON . Facility: Start: 04-12-2022 End: 04-13-[address] SANDOR SLAMON . Facility:[facility] Start: 04-11-2022 End: 04-12-[address] SANDOR SALMON . Facility: Start: 03-24-2019 End: 03-25-2019 Patient encounter procedure SHIRLEY MAHMOOD [facility] Start: 07-07-2018 End: 07-08-2018 Patient encounter procedure YOMAIRA MENDOZA [facility] Start: 08-19-2017 End: 08-20-2017 Ambulatory MARIAN CRUZ [facility] Procedures Date Procedure Procedure Detail Performing Clinician Start: 02-14-2025 IUD REMOVAL Sandor munson DO Work Phone: Start: 11-03-2022 Delivery of Products of Conception, External Approach DR SANDOR SALMON . Start: 11-03-2022 Drainage of Amniotic Fluid, Therapeutic from Products of Conception, Via Natural or Artificial Opening DR SANDOR SALMON . Start: 11-03-2022 Introduction of Othe r Hormone into Peripheral Vein, Percutaneous Approach DR SANDOR SALMON . Start: 11-03-2022 Repair Perineum Skin , External Approach DR SANDOR SALMON . Start: 03-24-2019 Antibody hiv-1&hiv-2 single result YOMAIRA MENDOZA Start: 03-24-2019 Hepatitis c antibody SANCHES JANNIE MENDOZA Start: 03-24-2019 Obstetric panel YOMAIRA Garza [place] Start: 03-24-2019 TYPE AND SCREEN YOMAIRA MENDOZA Start: 03-24-2019 Culture bacterial quanttative colony count urine YOMAIRA MENDOZA Start: 03-24-2019 Drug screen, qualitate/multi YOMAIRA MENDOZA Start: 03-24-2019 C.TRACHOMATIS N.GONORRHOEAE DNA, URINE YOMAIRA MENDOZA Start: 07-07-2018 Gonadotropin chorion ic quantitative YOMAIRA MENDOZA Start: 07-07-2018 TYPE AND SCREEN YOMAIRA MENDOZA Plan of Treatment Date Care Activity Detail Author Start: 05-08-2025 End: 05-08-2025 Patient encounter procedure [facility] Comment on above: Arrived Payers Date Payer Category Payer Medicaid (Managed Care) [employer] [id number] 2000 Unknown [id number] 2000 Unknown [id number] [id number]. 173 2000 Unknown [id number] [id number]. 593 2000 Unknown [id number] [id number]. 593 2000 Unknown [id number] [id number]. 593 2000 Unknown [id number] [id number]. 59 2000 Unknown [id number] 2.16.840.1.542929.3.579.2. 593 2000 Unknown [id number] 2.16.840.1.514783.3.579.2. 593 2000 Unknown [id number] 2.16.840.1.688409.3.579.2. 593 2000 Unknown [id number] 2.16.840.1.315796.3.579.2. 593 2000 Unknown [id number] [id number]. 1259 1959 Unknown [id number] Unknown [id number] [id number]. 593 Social History Date Type Detail Facility Start: 10-26-2023 Tobacco smoking stat [facility] Never smoked tobacco [facility] Start: 10-26-2023 Tobacco use and exposure Smoke less tobacco non-user [facility] Start: 02-14-2025 Alcoholic beverage intake Life time non-drinker (finding) [facility] Start: 02-14-2025 History of Social function [facility] Start: 02-14-2025 Tobacco use panel [facility] Start: 2000 Sex assigned at Not on file [facility] History of Present illness Narrative 02-14-2025 Tess Fernandez LPN - 02/14/2025 9:30 AM EDT Note Date & Type Note Facility 02-14-2025 History of Presen t illness Narrative Associated Order(s): IUD Removal Post-Procedure Diagnose(s): Encounter for IUD removal Reason for Appointment: Patient ID: Olga Hooker is a 25 y.o. female who presents for IUD removal Patient presents today for a IUD Removal appointment. MEDICATIONS No current outpatient medications ALLERGIES No Known Allergies PROBLEMS Active Ambulatory Problems Diagnosis Date Noted No Active Ambulatory Problems Resolved Ambulatory Problems Diagnosis Date Noted No Resolved Ambulatory Problems Past Medical History: Diagnosis Date History of multiple miscarriages HISTORY PAST MEDICAL HISTORY SOCIAL HISTORY Past Medical History: Diagnosis Date History of multiple miscarriages Social History Tobacco Use Smoking status: Never Smokeless tobacco: Never Substance Use Topics Alcohol use: Never Drug use: Never FAMILY HISTORY No family history on file. SURGICAL HISTORY History reviewed. No pertinent surgical history. REVIEW OF SYSTEMS Review of Systems: Review of Systems Constitutional: Negative. HENT: Negative. Eyes: Negative. Respiratory: Negative. Cardiovascular: Negative. Gastrointestinal: Negative. Genitourinary: Negative. Musculoskeletal: Negative. Skin: Negative. Neurological: Negative. All other systems reviewed and are negative. Hematological: Negative. Endocrine: Negative. Allergic/Immunologic: Negative. OBJECTIVE Objective: Physical Exam Constitutional: Appearance: Normal appearance. She is well-developed. Genitourinary: Vulva normal. Cardiovascular: Rate and Rhythm: Normal rate and regular rhythm. Pulmonary: Effort: Pulmonary effort is normal. Breath sounds: Normal breath sounds. Abdominal: General: Bowel sounds are normal. There is no distension. Palpations: Abdomen is soft. Tenderness: There is no abdominal tenderness. There is no guarding or rebound. Musculoskeletal: General: No swelling. Normal range of motion. Right lower leg: No edema. Left lower leg: No edema. Neurological: Mental Status: She is alert and oriented to person, place, and time. Skin: General: Skin is warm and dry. Psychiatric: Mood and Affect: Mood normal. Behavior: Behavior normal. Vitals and nursing note reviewed. Exam conducted with a juke box mechanic present. Vitals: Estimated body mass index is 33.89 kg/m as calculated from the following: Height as of 11/09/23: 5' 6 . Weight as of this encounter: 210 lb. BP: 116/74 No LMP recorded. ASSESSMENT & PLAN Assessment/Plan Encounter Diagnosis: ICD-10-CM 1. Encounter for IUD removal Z30.432 IUD Removal Date/Time: 02/14/2025 10:26 AM Performed by: Sandor Salmon DO Authorized by: Sandor Salmon DO Consent: Consent obtained: Written Consent given by: Patient Procedure risks and benefits discussed: yes Patient questions answered: yes Patient agrees, verbalizes understanding, and wants to proceed: yes Educational handouts given: yes Instructions and paperwork completed: yes [place] protocol: Patient states understanding of procedure being performed: yes Relevant documents present and verified: yes Test results available and properly labeled: yes Imaging studies available: yes Required blood products, implants, devices, and special equipment available: yes Site marked: yes Procedure: Removed with no complications: yes Removal due to mechanical complications of IUD: no Removal due to infection and inflammatory reaction: no Comments: IUD Removal: Patient presents today for removal of IUD. Written consent was obtained and patient was placed in dorsal lithotomy position with feet in stirrups. A sterile speculum was inserted into the vagina and the cervix was visualized. The IUD strings were grasped gently with forceps and the IUD was removed in its entirety without difficulty. The IUD was shown to the patient then properly discarded. Follow Up: Patient is to return to the office for annual exam unless needed otherwise Documented by Tess Fernandez LPN on behalf of: Sandor Salmon DO documented in this encounter [facility] Evaluation note Note Date & Type Note Facility Evaluation note Diagnosis Encounter for IUD removal documented in this encounter [facility] Summary Purpose Family History No Family History Records FoundNo Family History Records FoundNo Family History Records FoundNo Family History Records Found Advance Directives No Advanced Directives Records FoundNo Advanced Directives Records FoundNo Advanced Directives Records FoundNo Advanced Directives Records Found Additional Source Comments INFORMATION SOURCE (unrecogn ized section and content) DATE CREATED AUTHOR 02/09/2018 [facility] DATE CREATED AUTHOR AUTHOR'S ORGANIZ ATION 05/22/2019 [facility] DATE CREATED AUTHOR AUTHOR'S ORGANIZ ATION 12/19/2022 [facility] DATE CREATED AUTHOR AUTHOR'S ORGANIZ ATION 02/15/2025 [facility] EPIC Reason for Visit (unrecogniz ed section and content) Reason Comments IUD removal FOR RECORDS PERTAINING TO PATIENTS WHO ARE OR HAVE BEEN ENROLLED IN A CHEMICAL DEPENDENCY/SUBSTANCEABUSE PROGRAM, SOME INFORMATION MAY BE OMITTED. This clinical summary was aggregated from multiple sources. Caution should be exercised in using it in the provision of clinical care. This summary normalizes information from multiple sources, and as a consequence, information in this document may materially change the coding, format and clinical context of patient data. In addition, data may be omitted in some cases. CLINICAL DECISIONS SHOULD BE BASED ON THE PRIMARY CLINICAL RECORDS. [facility] [employer] [facility]. provides no warranty or guarantee of the accuracy or completeness of information in this document.
[2025-05-11 19:07] LABS: Age Gdln ACOG Testing Note (.); IGP, rfx Aptima HPV ASCU Note (.)
== END 2025-05-08 12:28 | disposition home or self-care (01) ==
LOC: LAB 12:27
PROVIDERS: Visit Provider Obstetrics & Gynecology
DX: Z01.419 Encounter for gynecological examination (general) (routine) without abnormal findings (principal)
CPT/HCPCS: 88175